=== PATIENT | female | born 1955 | race Caucasian/White ===

== ENCOUNTER 2023-05-01 23:33 | Inpatient (IN) | payer OTHER, MEDICAID ==
[~2023-05-01] VITALS: Ht 165.1 cm; Wt 51.3 kg
[2023-05-01 23:35] VITALS: BP_SYST 128; PULSE 64; RESP 19; TEMP 97.6; O2SAT 98
[2023-05-02 00:21] LABS: BASOPHILS % (AUTO) 0.7 % (0.0-2.0); EOSINOPHILS % (AUTO) 0.7 % (0.0-4.0); HEMATOCRIT 32.2 % (36-48); HEMOGLOBIN 10.7 g/dL (12.0-16.0); LYMPHOCYTES # (AUTO) 1.7 K/uL (1.0-5.5); LYMPHOCYTES % (AUTO) 25.9 % (20.5-51.5); MEAN CORPUSCULAR HEMOGLOBIN 31 pg (27-31); MEAN CORPUSCULAR HGB CONC 33 % (32-36); MEAN CORPUSCULAR VOLUME 94 fL (79.0-98.0); MONOCYTES # (AUTO) 0.4 K/uL (0.0-1.0); MONOCYTES % (AUTO) 6.9 % (1.7-9.3); NEUTROPHILS # (AUTO) 4.2 K/uL (1.8-7.7); NEUTROPHILS % (AUTO) 65.8 % (40.0-70.0); PLATELET COUNT (AUTO) 182 K/uL (130-430); RED BLOOD CELL COUNT(AUTO) 3.43 MIL/uL (4.2-6.2); RED CELL DISTRIBUTION WIDTH 14.3 % (9.0-15.0); WHITE BLOOD COUNT (AUTO) 6.5 K/uL (4.8-10.8)
[2023-05-02 00:40] LABS: ALANINE AMINOTRANSFERASE 12 U/L (12-78); ALBUMIN 3.2 g/dL (3.4-4.8); ANION GAP 4 (5-15); ASPARTATE AMINOTRANSFERASE 11 U/L (10-37); CARBON DIOXIDE 30 mmol/L (23-29); CHLORIDE 110 mmol/L (98-107); CREATININE 0.63 mg/dL (0.55-1.30); GFR AFRICAN AMERICAN 121 mL/min (>90); GFR NON AFRICAN-AMERICAN 100 mL/min (>90); GLUCOSE 102 mg/dL (74-106); POTASSIUM 3.9 mmol/L (3.5-5.1); SODIUM SERUM 144 mmol/L (136-145); TOTAL BILIRUBIN 0.5 mg/dL (0.0-1.0); TOTAL PROTEIN, SERUM 6.5 g/dL (6.4-8.3); UREA NITROGEN, BLOOD 24 mg/dL (8-21)
[2023-05-02] MEDS ORDERED: LEVE500T9 PO (00:46)
[2023-05-02] MEDS ORDERED: RIVA10TA PO (00:46)
[2023-05-02] MEDS ORDERED: MONT-40 PO (00:46)
[2023-05-02] MEDS ORDERED: MOM PO (00:46)
[2023-05-02] MEDS ORDERED: OLAN5TAB3 PO (00:46)
[2023-05-02] MEDS ORDERED: LEVO125T PO (00:46)
[2023-05-02] MEDS ORDERED: VALP250S3 PO (00:46)
[2023-05-02] MEDS ORDERED: DULCOLAX RC (00:46)
[2023-05-02] MEDS ORDERED: VITD2000 PO (00:46)
[2023-05-02] MEDS ORDERED: MECLIZINE HCL 25 MG TABLET (ANITVERT) PO ONE (01:45)
[2023-05-02 03:20] LABS: BILIRUBIN,URINE NEGATIVE (NEGATIVE); BLOOD, URINE 2+ (NEGATIVE); CLARITY/URINE SL CLOUDY (CLEAR); COLOR,URINE BROWN (YELLOW); GLUCOSE,URINE NEGATIVE (NEGATIVE); KETONES,URINE TRACE (NEGATIVE); LEUKOCYTE ESTERASE ,URINE 1+ (NEGATIVE); NITRITE, URINE NEGATIVE (NEGATIVE); PROTEIN URINE NEGATIVE (NEGATIVE)
[2023-05-02 03:33] LABS: BACTERIA,URINE FEW /HPF (None Seen)
[2023-05-02 05:46] VITALS: O2SAT 100
[2023-05-02 05:47] VITALS: BP_SYST 137; PULSE 68; RESP 20; TEMP 98.5
[2023-05-02] MEDS ORDERED: ONDANSETRON HCL 4 MG/2 ML VIAL IVP PRN (11:45)
[2023-05-02] MEDS ORDERED: LORazepam 2 MG/ML VIAL IVP PRN (11:45)
[2023-05-02] MEDS ORDERED: MILK OF MAGNESIA 30 ML UDC PO PRN (11:45)
[2023-05-02] MEDS ORDERED: HYDROcodone/ACETAMIN 10-325 MG TAB PO PRN (11:45)
[2023-05-02] MEDS ORDERED: ACETAMINOPHEN 325 MG TABLET PO PRN ×3 (11:45→12:00)
[2023-05-02] MEDS ORDERED: NALOXONE HCL 0.4 MG/ML AMP (NARCAN) IVP PRN ×2 (11:45)
[2023-05-02] MEDS ORDERED: HYDROcodone/ACETAMIN 5-325 MG TAB (NORCO/ VICODIN) PO PRN (11:45)
[2023-05-02] MEDS ORDERED: LEVOTHYROXINE SODIUM 0.125 MG TABLET PO ONE (12:00)
[2023-05-02] MEDS ORDERED: OLANZapine 5 MG TABLET PO ONE (12:00)
[2023-05-02] MEDS ORDERED: levETIRAcetam 500 MG TABLET PO ONE (12:00)
[2023-05-02] MEDS ORDERED: CHOLECALCIFEROL (VITAMIN D3) 2,000 UNIT TABLET PO ONE (12:00)
[2023-05-02 12:13] VITALS: BP_SYST 135; PULSE 65; RESP 19; TEMP 98.1; O2SAT 98
[2023-05-02] MEDS ORDERED: RIVAROXABAN 10 MG TABLET PO ONE (12:15)
[2023-05-02] MEDS ORDERED: BISACODYL 10 MG/SUPPOSITORY RC PRN (12:15)
[2023-05-02] MEDS ORDERED: VALPROIC ACID ORAL SYRUP 250 MG/5 ML UDC PO ONE (12:30)
[2023-05-02] MEDS: NORMAL SALINE 5 ML DISP.SYRIN IVF SCH ×2 (15:15→23:43)
[2023-05-02 16:00] VITALS: BP_SYST 129; PULSE 69; RESP 20; TEMP 97.9; O2SAT 97
[2023-05-02 16:01] VITALS: O2SAT 96
[2023-05-02] MEDS: MONTELUKAST 10 MG TABLET PO SCH (18:00)
[2023-05-02 20:00] VITALS: BP_SYST 151; PULSE 60; RESP 18; TEMP 98.2; O2SAT 100
[2023-05-02] MEDS: VALPROIC ACID ORAL SYRUP 250 MG/5 ML UDC PO SCH (21:00)
[2023-05-02] MEDS: levETIRAcetam 500 MG TABLET PO SCH (21:00)
[2023-05-03 00:52] VITALS: BP_SYST 124; PULSE 60; RESP 18; TEMP 98.9; O2SAT 99
[2023-05-03 05:58] LABS: BASOPHILS % (AUTO) 0.4 % (0.0-2.0); EOSINOPHILS % (AUTO) 0.5 % (0.0-4.0); HEMATOCRIT 32.5 % (36-48); HEMOGLOBIN 10.7 g/dL (12.0-16.0); LYMPHOCYTES % (AUTO) 13.2 % (20.5-51.5); MEAN CORPUSCULAR HEMOGLOBIN 31 pg (27-31); MEAN CORPUSCULAR HGB CONC 33 % (32-36); MEAN CORPUSCULAR VOLUME 95 fL (79.0-98.0); MONOCYTES # (AUTO) 0.5 K/uL (0.0-1.0); MONOCYTES % (AUTO) 6.1 % (1.7-9.3); NEUTROPHILS # (AUTO) 6.1 K/uL (1.8-7.7); NEUTROPHILS % (AUTO) 79.8 % (40.0-70.0); PLATELET COUNT (AUTO) 184 K/uL (130-430); RED BLOOD CELL COUNT(AUTO) 3.43 MIL/uL (4.2-6.2); RED CELL DISTRIBUTION WIDTH 14.2 % (9.0-15.0); WHITE BLOOD COUNT (AUTO) 7.6 K/uL (4.8-10.8)
[2023-05-03] MEDS: NORMAL SALINE 5 ML DISP.SYRIN IVF SCH ×3 (06:00→21:01)
[2023-05-03 06:14] LABS: CREATININE 0.63 mg/dL (0.55-1.30); POTASSIUM 3.5 mmol/L (3.5-5.1)
[2023-05-03] MEDS ORDERED: LEVOTHYROXINE SODIUM 0.125 MG TABLET PO SCH (07:00)
[2023-05-03 08:00] VITALS: BP_SYST 151; PULSE 60; RESP 17; TEMP 97; O2SAT 98
[2023-05-03] MEDS: CHOLECALCIFEROL (VITAMIN D3) 2,000 UNIT TABLET PO SCH (09:09)
[2023-05-03] MEDS: levETIRAcetam 500 MG TABLET PO SCH ×2 (09:10→21:00)
[2023-05-03] MEDS: OLANZapine 5 MG TABLET PO SCH (09:10)
[2023-05-03] MEDS: RIVAROXABAN 10 MG TABLET PO SCH (09:11)
[2023-05-03] MEDS: VALPROIC ACID ORAL SYRUP 250 MG/5 ML UDC PO SCH ×2 (09:13→21:00)
[2023-05-03 12:00] VITALS: BP_SYST 144; PULSE 64; RESP 18; TEMP 97.7; O2SAT 97
[2023-05-03 16:45] VITALS: BP_SYST 149; PULSE 62; RESP 17; TEMP 97.2; O2SAT 97
[2023-05-03] MEDS: MONTELUKAST 10 MG TABLET PO SCH (18:19)
[2023-05-03 20:00] VITALS: BP_SYST 137; PULSE 60; RESP 18; TEMP 98.9; O2SAT 100; O2SAT 99
[2023-05-04 00:36] VITALS: BP_SYST 137; PULSE 61; RESP 15; TEMP 96.1; O2SAT 99
[2023-05-04 05:56] LABS: BASOPHILS % (AUTO) 0.2 % (0.0-2.0); EOSINOPHILS # (AUTO) 0.1 K/uL (0.0-0.4); EOSINOPHILS % (AUTO) 0.8 % (0.0-4.0); HEMATOCRIT 33.6 % (36-48); HEMOGLOBIN 10.9 g/dL (12.0-16.0); LYMPHOCYTES # (AUTO) 1.5 K/uL (1.0-5.5); LYMPHOCYTES % (AUTO) 20.1 % (20.5-51.5); MEAN CORPUSCULAR HEMOGLOBIN 31 pg (27-31); MEAN CORPUSCULAR HGB CONC 32 % (32-36); MEAN CORPUSCULAR VOLUME 95 fL (79.0-98.0); MONOCYTES # (AUTO) 0.6 K/uL (0.0-1.0); MONOCYTES % (AUTO) 7.7 % (1.7-9.3); NEUTROPHILS # (AUTO) 5.2 K/uL (1.8-7.7); NEUTROPHILS % (AUTO) 71.2 % (40.0-70.0); PLATELET COUNT (AUTO) 183 K/uL (130-430); RED BLOOD CELL COUNT(AUTO) 3.55 MIL/uL (4.2-6.2); RED CELL DISTRIBUTION WIDTH 14.4 % (9.0-15.0); WHITE BLOOD COUNT (AUTO) 7.3 K/uL (4.8-10.8)
[2023-05-04] MEDS: NORMAL SALINE 5 ML DISP.SYRIN IVF SCH ×3 (06:00→22:05)
[2023-05-04 06:04] LABS: ERYTHROCYTE SEDIMENTATION RATE 12 MM/HR (0-20)
[2023-05-04] MEDS: D5/0.45 NS 1,000 ML IV SCH ×2 (06:17→22:02)
[2023-05-04 06:20] LABS: CALCIUM 8.9 mg/dL (8.4-11.0); CREATININE 0.96 mg/dL (0.55-1.30); POTASSIUM 3.4 mmol/L (3.5-5.1); TOTAL BILIRUBIN 0.7 mg/dL (0.0-1.0); TOTAL PROTEIN, SERUM 6.3 g/dL (6.4-8.3)
[2023-05-04 08:00] VITALS: BP_SYST 132; PULSE 60; TEMP 98.4; O2SAT 96
[2023-05-04] MEDS: VALPROIC ACID ORAL SYRUP 250 MG/5 ML UDC PO SCH ×2 (09:00→21:00)
[2023-05-04] MEDS: CHOLECALCIFEROL (VITAMIN D3) 2,000 UNIT TABLET PO SCH (10:17)
[2023-05-04] MEDS: levETIRAcetam 500 MG TABLET PO SCH ×2 (10:17→21:00)
[2023-05-04] MEDS: OLANZapine 5 MG TABLET PO SCH (10:17)
[2023-05-04] MEDS ORDERED: LEVOTHYROXINE SODIUM 0.125 MG TABLET PO SCH (10:19)
[2023-05-04] MEDS: RIVAROXABAN 10 MG TABLET PO SCH (10:20)
[2023-05-04] MEDS ORDERED: LEVO-62 PO (10:30)
[2023-05-04 11:53] VITALS: BP_SYST 108; PULSE 61; RESP 16; TEMP 98.4; O2SAT 100
[2023-05-04 17:12] VITALS: BP_SYST 101; PULSE 61; RESP 17; TEMP 97.9; O2SAT 99
[2023-05-04] MEDS: MONTELUKAST 10 MG TABLET PO SCH (19:00)
[2023-05-04 20:00] VITALS: BP_SYST 93; PULSE 60; RESP 18; TEMP 98.2; O2SAT 99
[2023-05-04] MEDS ORDERED: KCL 20 mEq in 100 mL (PREMIX) 100 ML IV ONE (21:00)
[2023-05-05 00:11] VITALS: BP_SYST 117; PULSE 60; RESP 14; TEMP 97.9; O2SAT 96
[2023-05-05] MEDS: NORMAL SALINE 5 ML DISP.SYRIN IVF SCH (06:00)
[2023-05-05 08:00] VITALS: BP_SYST 122; PULSE 66; RESP 18; TEMP 98; O2SAT 100
[2023-05-05] MEDS: VALPROIC ACID ORAL SYRUP 250 MG/5 ML UDC PO SCH (09:00)
[2023-05-05] MEDS: levETIRAcetam 500 MG TABLET PO SCH (09:59)
[2023-05-05] MEDS: CHOLECALCIFEROL (VITAMIN D3) 2,000 UNIT TABLET PO SCH (10:01)
[2023-05-05] MEDS: OLANZapine 5 MG TABLET PO SCH (10:01)
[2023-05-05] MEDS: RIVAROXABAN 10 MG TABLET PO SCH (10:02)
[2023-05-05 11:42] VITALS: BP_SYST 133; PULSE 68; RESP 17; TEMP 98; O2SAT 99
[2023-05-05 12:02] VITALS: BP_SYST 128; PULSE 75; RESP 19; TEMP 98.1; O2SAT 100
[2023-05-05] MEDS ORDERED: POTASSIUM CHLORIDE 40 MEQ, LIDOCAINE JECT 2% PF 100 MG 50 MG in NS 250 ML IV ONE (13:00)
== END 2023-05-05 15:35 | DRG 690 ==
LOC: SED 23:33 → SMU 05-02 03:59
PROVIDERS: ADMIT Preventive Medicine Preventive Medicine/Occupational Environmental Medicine; ATTEND Preventive Medicine Preventive Medicine/Occupational Environmental Medicine
DX: N39.0 Urinary tract infection, site not specified (principal); E44.0 Moderate protein-calorie malnutrition; I69.354 Hemiplegia and hemiparesis following cerebral infarction affecting left non-dominant side; Z68.1 Body mass index [BMI] 19.9 or less, adult; E87.1 Hypo-osmolality and hyponatremia; G93.49 Other encephalopathy; E87.6 Hypokalemia; D64.9 Anemia, unspecified; G40.909 Epilepsy, unspecified, not intractable, without status epilepticus; E03.9 Hypothyroidism, unspecified; F25.9 Schizoaffective disorder, unspecified; E55.9 Vitamin D deficiency, unspecified; Z79.899 Other long term (current) drug therapy; Z79.01 Long term (current) use of anticoagulants; Z88.0 Allergy status to penicillin; Z88.8 Allergy status to other drugs, medicaments and biological substances; Z91.040 Latex allergy status
CPT/HCPCS: 36415; 70450-TC; 71045; 76376; 80048; 80053; 81000; 81001; 81015; 83605; 83880; 84484; 85025; 85651-TC; 87040; 87081; 87086; 93005; 96365; 99285; J1956; J3480; J7050